=== PATIENT | female | born 1955 | race Caucasian/White ===

== ENCOUNTER 2023-08-23 17:06 | Emergency (ER) | payer MEDICARE ==
[~2023-08-23] VITALS: Ht 154.9 cm; Wt 77.3 kg
[2023-08-23 17:33] VITALS: BP 100/59; PULSE 65; RESP 16; TEMP 98.2
== END 2023-08-23 20:08 | disposition left against medical advice (07) ==
LOC: EMS 17:16
DX: R10.9 Unspecified abdominal pain (principal); Z53.21 Procedure and treatment not carried out due to patient leaving prior to being seen by health care provider
CPT/HCPCS: 93005; 99281; Z7502